=== PATIENT | female | born 1990 | race Caucasian/White ===

== ENCOUNTER 2023-02-08 14:08 | Day surgery (SDC) | payer OTHER, SELFPAY ==
--- NOTE | 2023-02-08 | PATH_ITS ---
[facility] Accession Number: [id number] No. of containers..03 Tissue . 01 Material submitted: . PART A: duodenum - DUODENUM PART B: gastrointestinal site - ANTRUM PART C: colon - RANDOM COLON . 01 Diagnosis: A. Duodenum, Biopsy: Duodenal mucosa with mildly increased intraepithelial lymphocytes and no significant blunting of the villous architecture. Please see comment. Negative for granulomas, dysplasia, and malignancy. . B. Stomach, Antrum, Biopsy: Antral mucosa with mild chronic gastritis. Negative for Helicobacter by immunohistochemistry. Negative for intestinal metaplasia. Negative for dysplasia and malignancy. . C. Random Colon, Biopsy: Colonic mucosa with no diagnostic abnormality. Negative for active, chronic, and microscopic colitis. Negative for dysplasia and malignancy. [facility] 02/15/2023 [employer] Local . 01 Comment: A. The histologic sections show essentially normal length villi with intraepithelial lymphocytosis. The differential diagnosis of this variable villous abnormality includes partially treated or clinically latent celiac sprue, dermatitis herpetiformis, infectious gastroenteritis, stasis, lymphocytic entercolitis or other protein allergies. In addition, similar small bowel histology can be seen in patients with other autoimmune disorders, idiopathic inflammatory bowel disease, and may be linked to the use of nonsteroidal anti-inflammatory drugs, olmesartan, or Helicobacter pylori infection. There is no evidence of Whipple's disease and no parasitic organisms are identified. . 01 Electronically signed: . Jil Berger MD, Pathologist NPI- [id number] . 01 Gross description: . Part A: DUODENUM: Received in formalin is 1 fragment(s) of hughes, soft tissue measuring 0.3 x 0.2 x 0.2 cm submitted entirely in 1 cassette(s) Part B: ANTRUM: Received in formalin is 1 fragment(s) of hughes, soft tissue measuring 0.3 x 0.2 x 0.1 cm submitted entirely in 1 cassette(s) Part C: RANDOM COLON: Received in formalin are 2 fragment(s) of hughes, soft tissue measuring 0.1 x 0.1 x 0.1 cm to 0.3 x 0.3 x 0.1 cm submitted entirely in 1 cassette(s) /RONNIE 02/09/2023 1847 Local . 01 Microscopic: . B. An immunohistochemical stain was performed to evaluate for Helicobacter organisms and is negative. The control stain showed appropriate reactivity. . * This test was developed and its performance characteristics determined by [facility]. It has not been cleared or approved by the U.[place]. Food and Drug Administration. The FDA has determined that such clearance or approval is not necessary. This test is used for clinical purposes. It should not be regarded as investigational or for research. . 01 Pathologist provided ICD-10: R10.9 . 01 CPT . 368679, 665801, 096953, [id number] Specimen Comment: A courtesy copy of this report has been sent to [phone] Performed at: 01 [facility] [address] [place] [address], [place], [place] [id number] MD Evans Pimentel MD Phone: [phone]
[2023-02-08] MEDS: LACTATED RINGERS 1,000 ML 150 ML IV (14:30)
[2023-02-08 14:38] VITALS: BP 134/87; PULSE 93; RESP 16; TEMP 37.2; O2SAT 100; BMI 21.2
--- NOTE | 2023-02-08 15:24 | PM.HP.1 ---
History of Present Illness History of Present Illness Date Patient Seen: 02/08/23 Time Patient Seen: 15:24 Chief complaint: SDC Narrative: I reviewed my recent office note. Patient has been experiencing abdominal pain nausea and diarrhea. EGD and colonoscopy have been requested. Recent blood work including CBC CMP TSH celiac serology and inflammatory markers were unremarkable. [facility] Social History household members: none Smoking Status: Current every day smoker alcohol intake: current Meds Home Medications and Allergies Home Medications Medication Instructions Recorded Confirmed Type omeprazole 20 mg capsule,delayed 20 mg PO DAILY 02/08/23 02/08/23 History release Allergies Allergy/AdvReac Type Severity Reaction Status Date / Time No Known Drug Allergies Allergy Verified 02/08/23 14:24 Review of Systems Review of Systems ROS: Yes All systems reviewed with the patient and are negative except as otherwise documented Exam Vital Signs (past 8 hours): - 02/08/23 14:38 02/08/23 14:38 Temperature 98.9 F Pulse Rate 93 H Respiratory Rate 16 Blood Pressure 134/87 Pulse Oximetry 100 Oxygen Delivery Method Room Air Room Air Oxygen Delivery Method Room Air Const General: cooperative HENMT Head: normal to inspection Eyes General: appearance normal, both eyes and all related structures Neck Neck: normal visual inspection Chest Chest: normal inspection of the chest Resp Effort & Inspection: normal respiratory effort Cardio Rate: regular rate GI Inspection: normal to inspection Skin General: no rashes or lesions noted Neuro General: patient alert and patient awake Extrem General: normal to inspection and no pedal edema Psych Appearance: grossly normal Assessment & Plan Assessment & Plan narrative: This is a 33-year-old female with a history of abdominal pain nausea and diarrhea. Diagnostic EGD and colonoscopy are pursued today.
--- NOTE | 2023-02-08 15:26 | PM.PREOP ---
Pre-operative Note Interval Note History & Physical reviewed/Exam performed by Physician: Yes Changes to H&P: No ASA Class (for procedural sedation): I
--- NOTE | 2023-02-08 16:16 | P.OP.EGD&C_ITS ---
Operative Date/Time/Diagnoses Date of procedure: 02/08/23 Time of procedure: 16:16 Pre-op diagnosis: Abdominal pain, nausea, diarrhea. Post-op diagnosis: same Procedure & Clinicians Study performed: EGD with biopsies and colonoscopy with biopsies Same procedure as scheduled: Yes Indications: Abdominal pain, nausea, diarrhea. Surgeon: Tyrese Cotton Procedure Notes SCOAP/Timeout: Done Procedure in detail: After the risks and benefits were explained, written and verbal informed consent was obtained. The patient was brought into the procedure room and placed into the left lateral decubitus position. Please see anesthesia notes for sedation details. The scope was introduced into the mouth through the bite block and advanced under direct visualization to the 2nd portion of the duodenum. The scope was slowly withdrawn carefully examining the mucosa for any defects or lesions. Retroflexed views were accomplished in the stomach. The stomach was decompressed, the scope was then removed from the patient who tolerated the procedure well. The patient was then turned around. A digital rectal examination was accomplished. The scope was introduced into the rectum and advanced to the cecum as identified by the appendiceal orifice and ileocecal valve. The terminal ileum was interrogated briefly. The scope was then slowly withdrawn to carefully examine the mucosa for any defects or lesions. Multiple direct views were made through the dentate line for exclusion of pathology. The colon was decompressed scope removed from the patient who tolerated the procedure well. Pediatric colonoscope Bowel prep adequate Scope withdrawal time: 7 minutes Sedation minutes: 29 Complications: none Impression: 1. Duodenal: This was visually normal from the bulb through to the 2nd portion. Random D2 biopsies were taken for exclusion of celiac. 2. Stomach: No outlet obstruction no ulcers no mass lesions. The patient had a fairly J-shaped stomach. Minimal gastropathy was appreciated throughout and biopsies were therefore taken from the antrum for exclusion of H pylori. Otherwise retroflexed views of the LES were unremarkable. 3. Esophagus: The squamocolumnar junction correlated with the top of the gastric folds. GE junction was at 38 cm from the incisors. No acute erosive changes no strictures no mass lesions. The esophagus was unremarkable throughout. 4. Terminal ileum: This was visually normal. 5. Colon: The patient had a moderately tortuous colon. This rendered na vigation rather difficult. However I did not appreciate any evidence of macroscopic colitis. Random colon biopsies were taken for exclusion of microscopic colitis. Endoscopic diagnosis 1. Mild gastropathy 2. Twisty colon 3. Otherwise visually unremarkable endoscopy. Post-procedure Plan for aftercare: 1. Await histology. 2. Titrate fiber to the desired stool consistency and frequency. 3. Follow up GI clinic. Disposition: PACU
[2023-02-08 16:20] VITALS: BP 110/86; PULSE 86; RESP 12; TEMP 36.5; O2SAT 99
[2023-02-08 16:24] VITALS: BP 117/74; PULSE 87; RESP 14; O2SAT 99
[2023-02-08 16:29] VITALS: BP 121/84; PULSE 88; RESP 12; O2SAT 100
[2023-02-08 16:40] VITALS: BP 110/58; PULSE 67; RESP 16; TEMP 36.5; O2SAT 100
== END 2023-02-08 16:58 | disposition home or self-care (01) ==
PROVIDERS: Referring Provider Internal Medicine Gastroenterology; Visit Provider Internal Medicine Gastroenterology
PROC: 0DJD8ZZ Inspection of Lower Intestinal Tract, Via Natural or Artificial Opening Endoscopic (ICD-10-PCS; CPT 45378; principal; 2023-02-08 15:30)
PROC: 0DJ08ZZ Inspection of Upper Intestinal Tract, Via Natural or Artificial Opening Endoscopic (ICD-10-PCS; CPT 43235; 2023-02-08 15:30)
DX: R10.9 Unspecified abdominal pain (principal); K31.9 Disease of stomach and duodenum, unspecified; K29.50 Unspecified chronic gastritis without bleeding; D72.820 Lymphocytosis (symptomatic)
CPT/HCPCS: 45380; 43239; J2704